=== PATIENT | female | born 1930 | race Caucasian/White ===

== ENCOUNTER 2018-03-16 00:21 | Inpatient (IN) | payer MEDICARE, BC, OTHER ==
[~2018-03-16] VITALS: Ht 160 cm; Wt 71.8 kg
[2018-03-16] MEDS ORDERED: ondansetron/PF 4mg/2ml inj IV ONE (00:30)
[2018-03-16] MEDS ORDERED: normal saline 1000ML IV soln IVB ONE (00:30)
[2018-03-16] MEDS ORDERED: ondansetron 4mg rapidly disintigrating tab PO ONE (00:50)
[2018-03-16 01:49] LABS: CLARITY,URINE CLOUDY (Clear); COLOR,URINE YELLOW (Yellow); GLUCOSE, URINE NEGATIVE (Neg); KETONES,URINE NEGATIVE (Neg); LEUKOCYTE ESTERASE ,URINE LARGE (Neg); NITRITES, URINE POSITIVE (Neg); OCCULT BLOOD,URINE SMALL (Neg); PH,URINE 5.5 (4.8-8.0); PROTEIN,URINE TRACE mg/dl (Neg); UROBILINOGEN,URINE 0.2 E.U/dL (0.2-1.0)
[2018-03-16 01:59] LABS: UA COLLECTION TYPE CLN CATCH MIDSTREAM
[2018-03-16 02:00] LABS: BACTERIA,URINE 4+ /HPF (Neg); RBC,URINE 0-2 /HPF (0-2); SQUAMOUS EPITHELIAL CELL,UR FEW /LPF (FEW); WBC CLUMPS,URINE MODERATE /HPF (NEGATIVE); WBC,URINE 50-100 /HPF (0-4)
[2018-03-16] MEDS ORDERED: levoFLOXACIN 250mg tablet PO ONE (02:50)
[2018-03-16] MEDS ORDERED: normal saline 1000ml 1,000 ML IV ONE (03:05)
[2018-03-16 03:15] LABS: OCCULT BLOOD STOOL NEGATIVE (Neg)
[2018-03-16 03:34] LABS: ALANINE AMINOTRANSFERASE 25 U/L (12-78); ALBUMIN 4.4 G/DL (3.4-5.0); ALBUMIN/GLOBULIN RATIO 1.1 (1.1-1.5); ALKALINE PHOSPHATASE 80 IU/L (46-116); ANION GAP 10 (8-16); ASPARTATE AMINO TRANSFERASE 25 U/L (10-37); BILIRUBIN,TOTAL 1.1 MG/DL (0.1-1.0); BLOOD UREA NITROGEN 26 MG/DL (7-18); BUN/CREATININE RATIO 28.6 (6.6-38.0); CALCIUM 9.7 MG/DL (8.5-10.1); CHLORIDE 102 MMOL/L (99-107); CREATININE 0.91 MG/DL (0.40-0.90); GLUCOSE 145 MG/DL (70-104); POTASSIUM 4.5 MMOL/L (3.5-5.1); SODIUM 140 MMOL/L (135-145); TOTAL CARBON DIOXIDE 28.4 MMOL/L (24-32); TOTAL PROTEIN 8.3 G/DL (6.4-8.2); eGFR 58 ML/MIN
[2018-03-16 04:21] LABS: BASOPHILS % (AUTO) 0.2 % (0-1); EOSINOPHILS % (AUTO) 0 % (0-6); HEMATOCRIT 44.8 % (35.0-45.0); HEMOGLOBIN 15.5 g/dl (12.0-16.0); LYMPHOCYTES # (AUTO) 0.5 X10'3 (1.1-4.8); LYMPHOCYTES % (AUTO) 4.8 % (21-51); MEAN CORPUSCULAR HEMOGLOBIN 30.9 PG (27.0-31.0); MEAN CORPUSCULAR HGB CONC 34.5 % (33.0-36.5); MEAN CORPUSCULAR VOLUME 89.5 FL (78-98); MEAN PLATELET VOLUME 8.7 FL (7.4-10.4); MONOCYTES # (AUTO) 0.2 X10'3 (0-0.9); MONOCYTES % (AUTO) 2.5 % (2-12); NEUTROPHILS % (AUTO) 92.5 % (42-75); PLATELET COUNT 174 X10'3 (140-440); RED BLOOD COUNT 5.01 X10'6 (4.20-5.60); RED CELL DISTRIBUTION WIDTH 13.2 % (11.5-14.5); WHITE BLOOD COUNT 9.7 X10'3 (4.5-11.0)
[2018-03-16] MEDS ORDERED: NO HOME MEDS (04:40)
[2018-03-16] MEDS: dextrose 5%-1/2 normal saline 1,000 ML IV SCH ×3 (04:53→19:01)
[2018-03-16] MEDS ORDERED: acetaminophen 325mg tablet PO PRN ×2 (04:55)
[2018-03-16] MEDS ORDERED: bisacodyl 10mg suppository rectal RC PRN (04:55)
[2018-03-16] MEDS ORDERED: magnesium hydroxide 30ml (MOM) UD suspension PO PRN (04:55)
[2018-03-16] MEDS ORDERED: HYDROcodone/acetaminophen 5mg/325mg tablet PO PRN (04:55)
[2018-03-16] MEDS ORDERED: morphine 2 MG/ML inj. syringe IV PRN (04:55)
[2018-03-16] MEDS ORDERED: acetaminophen 650mg rectal suppository RC PRN (04:55)
[2018-03-16] MEDS ORDERED: mag hydrox/Alum hydrox/simeth 30ml oral suspension PO PRN (04:55)
[2018-03-16] MEDS ORDERED: HYDROmorphone inj. 0.5 MG/0.5 ML DISP.SYRIN IV PRN ×2 (04:55)
[2018-03-16] MEDS: morphine 2 MG/ML inj. syringe IV PRN ×2 (05:15→11:35)
[2018-03-16] MEDS: ondansetron/PF 4mg/2ml inj IV PRN (05:15)
[2018-03-16 05:33] LABS: HEMOGLOBIN A1C 5.9 % (4.5-6.2)
[2018-03-16 05:47] LABS: C-REACTIVE PROTEIN 0.87 MG/DL (0.0-0.5); CREATINE KINASE 97 U/L (26-192); LIPASE 71 U/L (73-393); MAGNESIUM 2.3 MG/DL (1.5-2.4); PHOSPHORUS 4.1 MG/DL (2.3-4.5)
[2018-03-16] MEDS: HYDROcodone/acetaminophen 10/325mg tab PO PRN ×2 (06:40→14:50)
[2018-03-16] MEDS: heparin, porcine 5000 units/ml vial SQ SCH ×2 (07:31→20:22)
[2018-03-16] MEDS: docusate sod 100mg capsule PO SCH ×2 (07:32→20:21)
[2018-03-16] MEDS: pantoprazole 40mg Tablet.DR PO SCH (07:32)
[2018-03-16] MEDS: CefTRIAXone/D5W-Rocephin 1gm 50 ML IV SCH ×2 (07:32→20:21)
[2018-03-16 09:04] LABS: PARTIAL THROMBOPLASTIN TIME 28 SECONDS (22-32); PROTHROMBIN TIME 10.8 SECONDS (9.0-12.0)
[2018-03-16] MEDS: metoclopramide 5 mg/ml inj IV PRN (11:35)
[2018-03-16] MEDS ORDERED: OMEP40CA37 PO (14:04)
[2018-03-16] MEDS ORDERED: ATOR20TA PO (14:04)
[2018-03-16] MEDS ORDERED: VALA500T37 PO (14:04)
[2018-03-16] MEDS ORDERED: SOLI10TA2 PO (14:04)
[2018-03-16 16:58] VITALS: BP 154/77
[2018-03-16 18:00] VITALS: BP 166/66
[2018-03-16 20:20] LABS: ABG BASE EXCESS -2.8 mmol/L (-2.0-3.0); ABG HCO3 21.9 mmol/L (22.0-26.0); ABG OXYGEN SATURATION 96.4 % (95-98); ABG PCO2 (T) 39.7 mmHg (32.0-45.0); ABG PH (T) 7.364 (7.350-7.450); ALLEN'S TEST Positive; FLOW 2 L/min; FMetHb 0.3 % (0.3-1.12); FO2Hb 95.1 % (94-100); PATIENT TEMPERATURE 37.8; TOTAL HEMOGLOBIN 14.4 G/dl (12.0-16.0)
[2018-03-16] MEDS: lactobacillus rhamnosus 10,000 MMU CELLS/CAPSULE PO SCH (20:21)
[2018-03-16] MEDS: hydrALAZINE 20mg/ml inj. IV SCH (20:21)
[2018-03-16] MEDS ORDERED: furosemide 20 MG/2 ML vial IV ONE (20:40)
[2018-03-16] MEDS ORDERED: temazepam 15mg capsule PO PRN (21:00)
[2018-03-16 22:06] VITALS: BP 180/80
[2018-03-16 22:20] LABS: ALANINE AMINOTRANSFERASE 35 U/L (12-78); ALBUMIN 3.8 G/DL (3.4-5.0); ALKALINE PHOSPHATASE 73 IU/L (46-116); ANION GAP 11 (8-16); ASPARTATE AMINO TRANSFERASE 40 U/L (10-37); BILIRUBIN,TOTAL 0.7 MG/DL (0.1-1.0); BLOOD UREA NITROGEN 27 MG/DL (7-18); BUN/CREATININE RATIO 17.3 (6.6-38.0); CALCIUM 8.6 MG/DL (8.5-10.1); CHLORIDE 100 MMOL/L (99-107); CREATININE 1.56 MG/DL (0.40-0.90); GLUCOSE 173 MG/DL (70-104); POTASSIUM 3.9 MMOL/L (3.5-5.1); SODIUM 136 MMOL/L (135-145); TOTAL CARBON DIOXIDE 24.8 MMOL/L (24-32); TOTAL PROTEIN 7.5 G/DL (6.4-8.2); eGFR 31 ML/MIN
[2018-03-16 22:28] LABS: TROPONIN I < 0.04 NG/ML (0.0-0.05)
[2018-03-17] MEDS: hydrALAZINE 20mg/ml inj. IV SCH ×4 (01:56→19:57)
[2018-03-17 06:14] LABS: BASOPHILS % (AUTO) 0.1 % (0-1); EOSINOPHILS % (AUTO) 0 % (0-6); HEMATOCRIT 42.7 % (35.0-45.0); HEMOGLOBIN 14.6 g/dl (12.0-16.0); LYMPHOCYTES # (AUTO) 0.5 X10'3 (1.1-4.8); LYMPHOCYTES % (AUTO) 5.1 % (21-51); MEAN CORPUSCULAR HEMOGLOBIN 30.6 PG (27.0-31.0); MEAN CORPUSCULAR HGB CONC 34.2 % (33.0-36.5); MEAN CORPUSCULAR VOLUME 89.3 FL (78-98); MEAN PLATELET VOLUME 8.6 FL (7.4-10.4); MONOCYTES # (AUTO) 0.5 X10'3 (0-0.9); MONOCYTES % (AUTO) 5.2 % (2-12); NEUTROPHILS # (AUTO) 8.4 X10'3 (1.8-7.7); NEUTROPHILS % (AUTO) 89.6 % (42-75); PLATELET COUNT 130 X10'3 (140-440); RED BLOOD COUNT 4.78 X10'6 (4.20-5.60); RED CELL DISTRIBUTION WIDTH 13.7 % (11.5-14.5); WHITE BLOOD COUNT 9.4 X10'3 (4.5-11.0)
[2018-03-17 06:28] LABS: ALANINE AMINOTRANSFERASE 26 U/L (12-78); ALBUMIN 3.2 G/DL (3.4-5.0); ALBUMIN/GLOBULIN RATIO 0.9 (1.1-1.5); ALKALINE PHOSPHATASE 54 IU/L (46-116); ANION GAP 11 (8-16); ASPARTATE AMINO TRANSFERASE 40 U/L (10-37); BILIRUBIN,TOTAL 0.6 MG/DL (0.1-1.0); BLOOD UREA NITROGEN 29 MG/DL (7-18); BUN/CREATININE RATIO 15.7 (6.6-38.0); CALCIUM 8.5 MG/DL (8.5-10.1); CHLORIDE 101 MMOL/L (99-107); CHOL/HDL RATIO 2.7 (0.00-4.99); CHOLESTEROL 139 MG/DL (0-200); CREATININE 1.85 MG/DL (0.40-0.90); GLUCOSE 168 MG/DL (70-104); HDL CHOLESTEROL 52 MG/DL (35-60); LDL CHOLESTEROL 75 MG/DL (50-100); SODIUM 137 MMOL/L (135-145); TOTAL PROTEIN 6.7 G/DL (6.4-8.2); TRIGLYCERIDES 86 MG/DL (20-135); eGFR 26 ML/MIN
[2018-03-17 07:02] VITALS: BP 120/61
[2018-03-17] MEDS: lactobacillus rhamnosus 10,000 MMU CELLS/CAPSULE PO SCH ×2 (07:19→19:53)
[2018-03-17] MEDS: heparin, porcine 5000 units/ml vial SQ SCH ×2 (07:19→19:54)
[2018-03-17] MEDS: CefTRIAXone/D5W-Rocephin 1gm 50 ML IV SCH ×2 (07:19→19:52)
[2018-03-17] MEDS: pantoprazole 40mg Tablet.DR PO SCH (07:19)
[2018-03-17] MEDS: docusate sod 100mg capsule PO SCH ×2 (07:19→19:53)
[2018-03-17] MEDS: normal saline 1000ml 1,000 ML IV SCH ×2 (10:46→19:53)
[2018-03-17 12:33] VITALS: BP 126/55
[2018-03-17 18:00] VITALS: BP 117/47
[2018-03-17] MEDS: ondansetron/PF 4mg/2ml inj IV PRN (18:04)
[2018-03-17] MEDS: valacyclovir 500mg tablet PO SCH (19:53)
[2018-03-17] MEDS: metoclopramide 5 mg/ml inj IV PRN (20:02)
[2018-03-17] MEDS ORDERED: atorvastatin 20mg tablet PO SCH (21:00)
[2018-03-17 22:00] VITALS: BP 127/59
[2018-03-18] MEDS: hydrALAZINE 20mg/ml inj. IV SCH ×2 (02:00→07:21)
[2018-03-18] MEDS: normal saline 1000ml 1,000 ML IV SCH (05:37)
[2018-03-18 06:00] VITALS: BP 120/66
[2018-03-18 06:14] LABS: BASOPHILS % (AUTO) 0.3 % (0-1); EOSINOPHILS # (AUTO) 0.1 X10'3 (0-0.9); EOSINOPHILS % (AUTO) 1.3 % (0-6); HEMATOCRIT 35.3 % (35.0-45.0); HEMOGLOBIN 12.4 g/dl (12.0-16.0); LYMPHOCYTES # (AUTO) 1.3 X10'3 (1.1-4.8); LYMPHOCYTES % (AUTO) 16.5 % (21-51); MEAN CORPUSCULAR HEMOGLOBIN 31.1 PG (27.0-31.0); MEAN CORPUSCULAR VOLUME 88.7 FL (78-98); MEAN PLATELET VOLUME 8.4 FL (7.4-10.4); MONOCYTES # (AUTO) 0.8 X10'3 (0-0.9); MONOCYTES % (AUTO) 10.1 % (2-12); NEUTROPHILS # (AUTO) 5.6 X10'3 (1.8-7.7); NEUTROPHILS % (AUTO) 71.8 % (42-75); PLATELET COUNT 102 X10'3 (140-440); RED BLOOD COUNT 3.98 X10'6 (4.20-5.60); RED CELL DISTRIBUTION WIDTH 13.6 % (11.5-14.5); WHITE BLOOD COUNT 7.8 X10'3 (4.5-11.0)
[2018-03-18 06:20] LABS: ALANINE AMINOTRANSFERASE 18 U/L (12-78); ALBUMIN 2.6 G/DL (3.4-5.0); ALBUMIN/GLOBULIN RATIO 0.9 (1.1-1.5); ALKALINE PHOSPHATASE 57 IU/L (46-116); ANION GAP 8 (8-16); ASPARTATE AMINO TRANSFERASE 31 U/L (10-37); BILIRUBIN,TOTAL 0.4 MG/DL (0.1-1.0); BLOOD UREA NITROGEN 28 MG/DL (7-18); BUN/CREATININE RATIO 28.3 (6.6-38.0); CALCIUM 8.2 MG/DL (8.5-10.1); CHLORIDE 107 MMOL/L (99-107); CREATININE 0.99 MG/DL (0.40-0.90); GLUCOSE 100 MG/DL (70-104); POTASSIUM 3.4 MMOL/L (3.5-5.1); SODIUM 139 MMOL/L (135-145); TOTAL CARBON DIOXIDE 24.4 MMOL/L (24-32); TOTAL PROTEIN 5.6 G/DL (6.4-8.2); eGFR 53 ML/MIN
[2018-03-18] MEDS: valacyclovir 500mg tablet PO SCH (07:25)
[2018-03-18] MEDS: pantoprazole 40mg Tablet.DR PO SCH (07:26)
[2018-03-18] MEDS: docusate sod 100mg capsule PO SCH (07:26)
[2018-03-18] MEDS: lactobacillus rhamnosus 10,000 MMU CELLS/CAPSULE PO SCH (07:27)
[2018-03-18] MEDS: CefTRIAXone/D5W-Rocephin 1gm 50 ML IV SCH (07:28)
[2018-03-18] MEDS: heparin, porcine 5000 units/ml vial SQ SCH (07:33)
[2018-03-18] MEDS ORDERED: oxybutynin 5mg tablet PO SCH (08:00)
[2018-03-18] MEDS ORDERED: pantoprazole 40mg Tablet.DR PO SCH (08:00)
[2018-03-18] MEDS ORDERED: potassium Cl 20 mEq SR tablet PO STA (08:28)
[2018-03-18 10:00] VITALS: BP 117/63
[2018-03-18] MEDS ORDERED: SULF1TAB49 PO (10:05)
== END 2018-03-18 12:20 | disposition home or self-care (01) | DRG 682 ==
LOC: ER 00:22 → ED HOLD 04:53 → ORTHO 4S 16:17
PROVIDERS: ADMIT Family Medicine; ATTEND Internal Medicine
DX: N17.9 Acute kidney failure, unspecified (principal); G93.49 Other encephalopathy; N30.00 Acute cystitis without hematuria; N13.6 Pyonephrosis; B96.20 Unspecified Escherichia coli [E. coli] as the cause of diseases classified elsewhere; E78.5 Hyperlipidemia, unspecified; E86.0 Dehydration; I10 Essential (primary) hypertension; K21.9 Gastro-esophageal reflux disease without esophagitis; Z79.899 Other long term (current) drug therapy
CPT/HCPCS: 36415; 36600; 71045; 74176; 80053; 80061; 81001; 82272; 82550; 82803; 83036; 83690; 83735; 83880; 84100; 84443; 84484; 85018; 85025; 85610; 85651; 85730; 86140; 87070; 87077; 87088; 87186; 93005; 94760; 96360; 97116; 97161; 97530; 99285; A4315; J0360; J0696; J1644; J1940; J2270; J2405; J2765; J7030